=== PATIENT | male | born 1945 | race Caucasian/White ===

== ENCOUNTER → 2016-11-28 | Outpatient (CLI) | payer OTHER, MEDICARE ==
[~2016-11-28] MED LIST: ETD400T; HYDR-3820 PO; PANT40TA PO
--- OUTSIDE RECORDS SUMMARY | 2016-11-28 14:57 | XMS REPORT | Continuity of Care Document ---
Author Author [facility] Organization [facility] Address Unknown Phone Unavailable Allergies Active Description Code Type Severity Reaction Onset Reported/Identified Relationship to Patient Clinical Status Yes hydrogen peroxide [id number] Drug Allergy Unknown N/A 04/07/2009 Medications Problems Date Dx Coded Attending Type Code Diagnosis Diagnosed By 05/19/2013 COLETTE MCCURDY MD Ot 562.10 DIVERTICULOSIS COLON (W/O MENT OF HEMORR 05/19/2013 COLETTE MCCURDY MD Ot V12.72 PERSONAL HISTORY OF COLONIC POLYPS 05/19/2013 COLETTE MCCURDY MD Ot V76.51 SCREEN MAL NEOP-COLON 10/19/2014 JAMIE ALBARADO MD R Ot 786.50 03/18/2015 JAMIE ALBARADO MD Ot 786.50 03/22/2016 Ot 473.9 CHRONIC SINUSITIS NOS 03/22/2016 Ot 562.10 DIVERTICULOSIS COLON (W/O MENT OF HEMORR 03/22/2016 Ot 574.20 CHOLELITHIASIS NOS 03/22/2016 Ot 789.09 ABDOMINAL PAIN, OTHER SPECIFIED SITE 03/22/2016 JAMIE ALBARADO MD Ot 574.20 CHOLELITHIASIS NOS 03/22/2016 JAMIE ALBARADO MD Ot 600.00 HYPERTROPHY (BENIGN) OF PROSTATE W/O URI 03/22/2016 JAMIE ALBARADO MD Ot 719.45 JOINT PAIN-PELVIS 03/22/2016 COLETTE MCCURDY MD Ot V72.84 EXAM PRE-OPERATIVE NOS 03/22/2016 JAMIE ALBARADO MD Ot 786.50 CHEST PAIN NOS 03/26/2016 JAMIE ALBARADO MD Ot H92.01 OTALGIA, RIGHT EAR 03/26/2016 JAMIE ALBARADO MD Ot R91.1 SOLITARY PULMONARY NODULE 03/26/2016 JAMIE ALBARADO MD Ot Z85.89 PERSONAL HISTORY OF MALIGNANT NEOPLASM O 06/11/2016 Ot 473.9 CHRONIC SINUSITIS NOS 06/11/2016 Ot 562.10 DIVERTICULOSIS COLON (W/O MENT OF HEMORR 06/11/2016 Ot 574.20 CHOLELITHIASIS NOS 06/11/2016 Ot 789.09 ABDOMINAL PAIN, OTHER SPECIFIED SITE 06/11/2016 JAMIE ALBARADO MD R Ot 574.20 CHOLELITHIASIS NOS 06/11/2016 JAMIE ALBARADO MD R Ot 600.00 HYPERTROPHY (BENIGN) OF PROSTATE W/O URI 06/11/2016 JAMIE ALBARADO MD R Ot 719.45 JOINT PAIN-PELVIS 06/11/2016 KAZ KIMBALL, COLETTE Ot V72.84 EXAM PRE-OPERATIVE NOS 06/11/2016 JAMIE ALBARADO MD R Ot 786.50 CHEST PAIN NOS 06/11/2016 JAMIE ALBARADO MD R Ot H92.01 OTALGIA, RIGHT EAR 06/11/2016 JAMIE ALBARADO MD R Ot R91.1 SOLITARY PULMONARY NODULE 06/11/2016 JAMIE ALBARADO MD R Ot Z85.89 PERSONAL HISTORY OF MALIGNANT NEOPLASM O 06/20/2016 JAMIE ALBARADO MD R Ot H92.01 OTALGIA, RIGHT EAR 06/20/2016 JAMIE ALBARADO MD R Ot R91.1 SOLITARY PULMONARY NODULE 06/20/2016 JAMIE ALBARADO MD R Ot Z85.89 PERSONAL HISTORY OF MALIGNANT NEOPLASM O 06/20/2016 Ot 473.9 CHRONIC SINUSITIS NOS 06/20/2016 Ot 562.10 DIVERTICULOSIS COLON (W/O MENT OF HEMORR 06/20/2016 Ot 574.20 CHOLELITHIASIS NOS 06/20/2016 Ot 789.09 ABDOMINAL PAIN, OTHER SPECIFIED SITE 06/20/2016 JAMIE ALBARADO MD R Ot 574.20 CHOLELITHIASIS NOS 06/20/2016 JAMIE ALBARADO MD R Ot 600.00 HYPERTROPHY (BENIGN) OF PROSTATE W/O URI 06/20/2016 JAMIE ALBARADO MD R Ot 719.45 JOINT PAIN-PELVIS 06/20/2016 KAZ KIMBALL, COLETTE Ot V72.84 EXAM PRE-OPERATIVE NOS 06/20/2016 JAMIE ALBARADO MD R Ot 786.50 CHEST PAIN NOS 06/20/2016 SEGJAMIE WILLSON MD Ot H92.01 OTALGIA, RIGHT EAR 06/20/2016 JAMIE ALBARADO MD R Ot R91.1 SOLITARY PULMONARY NODULE 06/20/2016 JAMIE ALBARADO MD R Ot Z85.89 PERSONAL HISTORY OF MALIGNANT NEOPLASM O 06/25/2016 Ot 473.9 CHRONIC SINUSITIS NOS 06/25/2016 Ot 562.10 DIVERTICULOSIS COLON (W/O MENT OF HEMORR 06/25/2016 Ot 574.20 CHOLELITHIASIS NOS 06/25/2016 Ot 789.09 ABDOMINAL PAIN, OTHER SPECIFIED SITE 06/25/2016 JAMIE ALBARADO MD Ot 574.20 CHOLELITHIASIS NOS 06/25/2016 JAMIE ALBARADO MD Ot 600.00 HYPERTROPHY (BENIGN) OF PROSTATE W/O URI 06/25/2016 JAMIE ALBARADO MD Ot 719.45 JOINT PAIN-PELVIS 06/25/2016 COLETTE MCCURDY MD Ot V72.84 EXAM PRE-OPERATIVE NOS 06/25/2016 JAMIE ALBARADO MD Ot 786.50 CHEST PAIN NOS 06/25/2016 JAMIE ALBARADO MD Ot H92.01 OTALGIA, RIGHT EAR 06/25/2016 JAMIE ALBARADO MD Ot R91.1 SOLITARY PULMONARY NODULE 06/25/2016 JAMIE ALBARADO MD Ot Z85.89 PERSONAL HISTORY OF MALIGNANT NEOPLASM O Procedures Results Encounters ACCT No. Visit Date/Time Discharge Status Pt. Type Provider Facility Loc./Unit Complaint [id number] 10/10/2014 10:06:00 2013 23:59:59 CLS Outpatient JAMIE ALBARADO MD [facility] RAD L LAT-ANT CP, [id number] 05/19/2013 08:13:00 2012 11:20:00 DIS Outpatient COLETTE MCCURDY MD [facility] ABDOMINAL PAIN/HISTORY OF POLYPS [id number] 05/12/2013 08:14:00 2012 23:59:59 CLS Outpatient COLETTE MCCURDY MD [facility] PREOP ABDOMINAL PAIN/HISTORY OF POLYPS [id number] 03/25/2013 08:31:00 2012 23:59:59 CLS Outpatient JAMIE ALBARADO MD [facility] RAD ABD PAIN, PAIN IN LEFT HIP [id number] 03/22/2016 13:44:00 ACT Outpatient JAMIE ALBARADO MD [facility] RAD RT EAR PRESSURE/PAIN [id number] 05/11/2012 13:42:00 Document Registration [id number] 05/17/2011 09:43:00 Document Registration
--- NOTE | 2016-11-28 15:30 | Diagnostic Imaging Report ---
EXAMINATION: Right lower extremity duplex venous ultrasound. TECHNIQUE: DVT protocol. Multiple sonographic images with color Doppler and waveform interrogation were performed of the right lower extremity veins with compression and augmentation maneuvers. INDICATION: Right leg pain. FINDINGS: The right lower extremity veins from the groin to below the knee veins were examined with normal color-flow, compressibility and normal waveform demonstrated. The great saphenous vein is patent. IMPRESSION: No evidence of DVT in the right lower extremity. Dictated by: Dictated on workstation # [id number]
== END ==
LOC: RAD 14:53
DX: M79.651 Pain in right thigh (principal)

== ENCOUNTER 2016-11-30 00:12 | Emergency (ER) | payer OTHER, MEDICARE ==
[~2016-11-30] VITALS: Ht 172.7 cm; Wt 81.6 kg
[~2016-11-30 00:12] MED LIST changes: -HYDR-3820 PO
--- NOTE | 2016-11-30 00:40 | ED Lower Extremity ---
General Chief Complaint: -Male Stated Complaint: RT LEG PAIN Nursing Triage Note: REPORTS DEVELOPED SEVERE RIGHT GROIN AREA PAIN FRIDAY NIGHT. HAD AN ULTRASOUND DONE ON FRIDAY WHICH WAS NEGATIVE FOR BLOOD CLOT, DONE THRU WORK MD GIVING ORDER. Nursing Sepsis Screen: No Definite Risk Source: patient Exam Limitations: no limitations History of Present Illness Time seen by provider: 00:40 Initial Comments As above. See below for further hx. Onset: this afternoon, other (Awoke him just p/ midnight AM. Negative venous doppler of his RLE . Pain continues and just can't take it any longer. Never had anything like this before. Does have some radiation down leg to below knee and now some radiation up into his low back.) Severity: severe (07/29) Pain/Injury Location: right thigh Method of Injury: unknown Modifying Factors: Improves With Other (nothing really makes it better or worse.) Allergies and Home Medications Allergies Coded Allergies: Hydrogen Peroxide (Verified Allergy, Unknown, 04/07/09) Home Medications Hydrocodone/Acetaminophen 1 Each Tablet #24 1 EACH PO Q6H Prescribed by: KING CROFT on 11/30/16 0337 Pantoprazole Sodium 40 Mg Tablet.dr 40 MG PO DAILY (Reported) Constitutional: see HPI Musculoskeletal: see HPI (right upper anterior-medial thigh pain) All Other Systems Reviewed Negative Unless Noted: Yes (Negative excepted noted.) Past Jgkwsht-Kvdsmh-Yqphdi Hx Patient Social History Alcohol Use: Denies Use Recreational Drug Use: No Smoking Status: Former Smoker Type Used: Cigarettes 2nd Hand Smoke Exposure: No Recent Foreign Travel: No Contact w/Someone Who Travel: No Recent Infectious Disease Expo: No Recent Hopitalizations: No Immunizations Up To Date Date of Pneumonia Vaccine: Aug 20, 2016 Seasonal Allergies Seasonal Allergies: No Surgeries HX Surgeries: Yes (iNGUINAL HERNIA) Surgeries: Appendectomy Respiratory Hx Respiratory Disorders: No Cardiovascular Hx Cardiac Disorders: Yes (MITRAL VALVE PROLAPSE) Neurological Hx Neurological Disorders: No Reproductive System Hx Reproductive Disorders: No Genitourinary Hx Genitourinary Disorders: Yes Genitourinary Disorders: Kidney Stones Gastrointestinal Hx Gastrointestinal Disorders: Yes (Manohar FREDERICK 2006) Musculoskeletal Hx Musculoskeletal Disorders: Yes Musculoskeletal Disorders: Arthritis Endocrine Hx Endocrine Disorders: No HEENT HX ENT Disorders: No Cancer Hx Cancer: No Psychosocial Hx Psychiatric Problems: No Integumentary HX Skin/Integumentary Disorder: No Blood Transfusions Hx Blood Disorders: No Physical Exam Vital Signs Vital Sign - Last 12Hours 11/30/16 00:18 Temp 98.2 Pulse 75 Resp 20 B/P 183/93 Pulse Ox 95 O2 Delivery Room Air Capillary Refill : Less Than 3 Seconds General Appearance: WD/WN no apparent distress Cardiovascular: regular rate, rhythm Respiratory: no respiratory distress Gastrointestinal: non tender Legs: right leg pain (right upper anterior lateral thigh), right leg soft tissue tenderness (right upper anterior medial thigh) Neurologic/Psychiatric: no motor/sensory deficits alert normal mood/affect oriented x 3 Skin: warm/dry Progress/Results/Core Measures Results/Orders Lab Results Laboratory Tests Test 11/30/16 00:39 11/30/16 02:05 Range/Units Urine Bacteria NEGATIVE /HPF Urine Bilirubin NEGATIVE NEGATIVE Urine Casts NONE /LPF Urine Clarity SLIGHTLY CLOUDY Urine Color YELLOW Urine Crystals NONE /LPF Urine Culture Indicated NO Urine Glucose (UA) NEGATIVE NEGATIVE Urine Ketones NEGATIVE NEGATIVE Urine Leukocyte Esterase NEGATIVE NEGATIVE Urine Mucus LARGE H /LPF Urine Nitrite NEGATIVE NEGATIVE Urine Protein 1+ H NEGATIVE Urine RBC RARE /HPF Urine RBC (Auto) 1+ H NEGATIVE Urine Specific [place] 1.025 H 1.016-1.022 Urine Squamous Epithelial Cells 0-2 /HPF Urine Urobilinogen NORMAL NORMAL MG/DL Urine WBC RARE /HPF Urine pH 5 5-9 Alanine Aminotransferase (ALT/SGPT) 17 0-55 U/L Albumin 4.2 3.2-4.5 G/DL Alkaline Phosphatase 75 40-136 U/L Anion Gap 11 5-14 MMOL/L Aspartate Amino Transf (AST/SGOT) 19 5-34 U/L BUN/Creatinine Ratio 27 Basophils # (Auto) 0.0 0.0-0.1 10^3/uL Basophils (%) (Auto) 1 0-10 % Blood Urea Nitrogen 28 H 7-18 MG/DL C-Reactive Protein High Sensitivity 0.07 0.00-0.50 MG/DL Calcium Level 9.0 8.5-10.1 MG/DL Carbon Dioxide Level 22 21-32 MMOL/L Chloride Level 107 98-107 MMOL/L Creatinine 1.04 0.60-1.30 MG/DL D-Dimer < 0.27 0.00-0.49 UG/ML Eosinophils # (Auto) 0.3 0.0-0.3 10^3/uL Eosinophils (%) (Auto) 5 0-10 % Erythrocyte Sedimentation Rate 6 0-30 MM/HR Estimat Glomerular Filtration Rate > 60 Glucose Level 102 70-105 MG/DL Hematocrit 39 L 40-54 % Hemoglobin 12.8 L 13.3-17.7 G/DL Lymphocytes # (Auto) 2.6 1.0-4.0 X 10^3 Lymphocytes (%) (Auto) 41 12-44 % Mean Corpuscular Hemoglobin 27 25-34 PG Mean Corpuscular Hemoglobin Concent 33 32-36 G/DL Mean Corpuscular Volume 83 80-99 FL Mean Platelet Volume 10.0 7.4-10.4 FL Monocytes # (Auto) 0.7 0.0-1.0 X 10^3 Monocytes (%) (Auto) 10 0-12 % Neutrophils # (Auto) 2.8 1.8-7.8 X 10^3 Neutrophils (%) (Auto) 44 42-75 % Platelet Count 162 130-400 10^3/uL Potassium Level 4.0 3.6-5.0 MMOL/L Red Blood Count 4.70 4.35-5.85 10^6/uL Red Cell Distribution Width 15.3 H 10.0-14.5 % Sodium Level 140 135-145 MMOL/L Total Bilirubin 0.4 0.1-1.0 MG/DL Total Protein 6.7 6.4-8.2 G/DL White Blood Count 6.4 4.3-11.0 10^3/uL My Orders Orders-KING CROFT DO Ua Culture If Indicated (11/30/16 00:39) Oxycodone Immediate Rel Tablet (Oxyir Ta (11/30/16 00:45) Ct Extremity Lower Right Wo (11/30/16 01:03) Saline Lock/Iv-Start (11/30/16 02:03) Cbc With Automated Diff (11/30/16 02:03) Comprehensive Metabolic Panel (11/30/16 02:03) Hs C Reactive Protein (11/30/16 02:03) Fibrin Degradation Products (11/30/16 02:03) Erythrocyte Sedimentation Rate (11/30/16 02:03) Dexamethasone Pf Injection (Decadron Pf (11/30/16 03:45) Hydromorphone Injection (Dilaudid Inject (11/30/16 03:45) Medications Given in ED Vital Signs/I&O Vital Sign - Last 12Hours 11/30/16 11/30/16 11/30/16 11/30/16 00:18 03:42 03:43 03:55 Temp 98.2 98.2 98.2 98.2 Pulse 75 63 Resp 20 20 B/P 183/93 Pulse Ox 95 96 O2 Delivery Room Air Blood Pressure Mean: 123 Diagnostic Imaging Diagonstic Imaging: CT Plain Films/CT/US/NM/MRI: femur Reviewed: Reviewed [place] Hawk Study (nothing acute. ) Departure Impression Impression: Primary Impression: Acute pain of left thigh Disposition: HOME, SELF-CARE Condition: Stable Departure-Patient Inst. Decision time for Depature: 03:35 Referrals: JAMIE ALBARADO MD (PCP/Family) Primary Care Physician Patient Instructions: Acute Pain, Adult (DC) Add. Discharge Instructions: All discharge instructions reviewed with patient and/or family. Voiced understanding. FOLLOW UP WITH DR. ALBARADO IF NOT DOING BETTER BY FRIDAY, 12/02. MAY NEED A MRI OF YOUR THIGH. Scripts Hydrocodone/Acetaminophen (Hydrocodon-Acetaminophn 10-325)1 Each Tablet1 Each PO Q6H Pain #24 TAB Ref 0 Prov:KING CROFT DO 11/30/16 KING CROFT DO Nov 30, 2016 00:40 Prov:KING CROFT DO 11/30/16 KING CROFT DO Nov 30, 2016 00:40
[2016-11-30 00:58] LABS: BILIRUBIN,URINE NEGATIVE (NEGATIVE); KETONES,URINE NEGATIVE (NEGATIVE); LEUKOCYTE ESTERASE ,URINE NEGATIVE (NEGATIVE); NITRITE,URINE NEGATIVE (NEGATIVE); PH,URINE 5 (5-9); PROTEIN,URINE 1+ (NEGATIVE); UROBILINOGEN,URINE NORMAL (NORMAL)
[2016-11-30 01:08] LABS: SQUAMOUS EPITHELIAL CELL,UR 0-2 /HPF; WBC,URINE RARE /HPF
[2016-11-30 02:18] LABS: BASOPHILS % (AUTO) 1 % (0-10); EOSINOPHILS # (AUTO) 0.3 10^3/uL (0.0-0.3); EOSINOPHILS % (AUTO) 5 % (0-10); LYMPHOCYTES # (AUTO) 2.6 X 10^3 (1.0-4.0); LYMPHOCYTES % (AUTO) 41 % (12-44); MEAN CORPUSCULAR HEMOGLOBIN 27 PG (25-34); MEAN CORPUSCULAR HGB CONC 33 G/DL (32-36); MEAN CORPUSCULAR VOLUME 83 FL (80-99); MONOCYTES # (AUTO) 0.7 X 10^3 (0.0-1.0); MONOCYTES % (AUTO) 10 % (0-12); NEUTROPHILS # (AUTO) 2.8 X 10^3 (1.8-7.8); NEUTROPHILS % (AUTO) 44 % (42-75); PLATELET COUNT 162 10^3/uL (130-400); RED CELL DISTRIBUTION WIDTH 15.3 % (10.0-14.5); WHITE BLOOD COUNT 6.4 10^3/uL (4.3-11.0)
[2016-11-30 02:41] LABS: ALANINE AMINOTRANSFERASE 17 U/L (0-55); ALBUMIN 4.2 G/DL (3.2-4.5); ANION GAP 11 MMOL/L (5-14); ASPARTATE AMINO TRANSFERASE 19 U/L (5-34); BILIRUBIN,TOTAL 0.4 MG/DL (0.1-1.0); BLOOD UREA NITROGEN 28 MG/DL (7-18); BUN/CREATININE RATIO 27; CARBON DIOXIDE 22 MMOL/L (21-32); CHLORIDE 107 MMOL/L (98-107); CREATININE SERUM 1.04 MG/DL (0.60-1.30); GFR ESTIMATED > 60; GLUCOSE 102 MG/DL (70-105); SODIUM 140 MMOL/L (135-145); TOTAL PROTEIN 6.7 G/DL (6.4-8.2); hs C REACTIVE PROTEIN 0.07 MG/DL (0.00-0.50)
[2016-11-30 03:22] LABS: ERYTHROCYTE SEDIMENTATION RATE 6 MM/HR (0-30)
[2016-11-30] MEDS ORDERED: HYDR-3820 PO (03:37)
[2016-11-30] MEDS ORDERED: DEXAMETHASONE PF 10 MG/ML (DECADRON) VIAL IM ONE (03:45)
[2016-11-30] MEDS ORDERED: HYDROmorphone (DILAUDID) 2 MG/ML VIAL IM ONE (03:45)
[2016-11-30 03:55] VITALS: BP 164/77
--- NOTE | 2016-11-30 07:21 | Diagnostic Imaging Report ---
PROCEDURE: CT right lower extremity without contrast. TECHNIQUE: Axially acquired CT was obtained through the right lower extremity without intravenous contrast. Coronal and sagittal reformations were also performed. INDICATION: Right groin pain EXAMINATION: CT of the right lower extremity dated 11/30/19 FINDINGS: The visualized intrapelvic structures demonstrate prominence and heterogeneity as well as calcifications throughout the prostate and clinical correlation recommended. The osseous structures are intact. No acute fractures appreciated. Lucencies noted within the right anterior acetabulum superiorly consistent with subchondral cysts associated with degenerative disease. More inferiorly within the acetabulum a peripherally sclerotic centrally lucent lesion is noted nonspecific but benign in appearance. There is no dislocation. Spurring at the femoral head is noted. Visualized proximal femur is intact. Soft tissues appear unremarkable. There is a vague lucency within the right femoral neck on the coronal imaging which is felt to represent a nutrient foramen. No adjacent soft tissue abnormality is appreciated. IMPRESSION: 1. Incidental findings as discussed above with no acute osseous abnormality. However, if the patient has continued pain or cannot bear weight MRI recommended versus bone scan to evaluate for edema or uptake at a nondisplaced occult fracture. Findings agree with the preliminary report. Dictated by: Dictated on workstation # [id number]
== END 2016-11-30 03:55 | disposition home or self-care (01) ==
LOC: EDUNIT# 00:12 → ER 00:15
DX: M79.651 Pain in right thigh (principal)
CPT/HCPCS: 36415; 73700; 80053; 81000; 85025; 85379; 85652; 86141; 96372

== ENCOUNTER → 2016-12-02 | Outpatient (CLI) | payer OTHER, MEDICARE ==
[~2016-12-02] MED LIST changes: +GADOBUTROL 10 MMOL/10 ML (GADAVIST) VIAL IV ONE; +HYDR-3820 PO
[2016-12-02 16:02] LABS: BLOOD UREA NITROGEN 28 MG/DL (7-18); BUN/CREATININE RATIO 26; CREATININE SERUM 1.09 MG/DL (0.60-1.30); GFR ESTIMATED > 60
--- NOTE | 2016-12-02 17:19 | Diagnostic Imaging Report ---
PROCEDURE: MRI pelvis with and without contrast. TECHNIQUE: A multiplanar/multisequence MRI of the pelvis was performed with and without contrast. INDICATION: Severe right groin pain. CONTRAST: 80 mL of Gadovist was administered intravenously. FINDINGS: In the anterior inferior aspect of the acetabulum on the right side, there is a T2 bright lobulated lesion measuring 1.8 x 1.7 x 1.3 cm. The lesion is slightly hyperintense on the T1 fat-sat sequence prior to contrast administration and demonstrates questionable mild contrast enhancement. A similar signal intensity lesion measuring 1 cm is seen in the anterior inferior aspect of the left acetabulum. These lesions have sharply marginated borders with no surrounding edema and with no MRI evidence of an associated fracture. There is another lesion with T2 bright signal in the left transverse process of the L5 level measuring 1.4 cm in size. This lesion demonstrates enhancement on the post contrast exam. This lesion appears to have less defined margins when compared to the previously described abnormalities in the anterior inferior acetabulum on both sides. The three lesions in the acetabulum and left L5 transverse process demonstrate no soft tissue mass component. There is no sacral insufficiency fracture. No femoral neck insufficiency or stress fracture is seen. There is no avascular necrosis. There is a minimal symmetric amount of fluid in the hip joints which could be physiologic. There is no distention of the greater trochanteric or iliopsoas bursa seen. The common origin of the hamstring tendons appears normal. The muscles around the hip joints and pelvis appear unremarkable. The soft tissue structures within the true pelvis demonstrate a slightly enlarged prostate gland measuring 5 cm in transverse dimension with a minimal amount of free peritoneal fluid of uncertain significance. IMPRESSION: Focal bone lesions, relatively small in size, are seen in the anterior inferior acetabulum bilaterally and in the left transverse process of L5. The acetabular lesions are well circumscribed and demonstrate minimal post contrast enhancement. Based on their subchondral location, these could be degenerative subchondral cysts with slightly reactive enhancement. The lesion in the left L5 transverse process demonstrates moderate enhancement and is not well circumscribed. The etiology is uncertain. Neoplasm such as plasmacytoma or metastasis is not excluded. Further evaluation with a bone scan is recommended. Report faxed to Dr. William at [phone] at 5:20 p.m. 12/02/2016/lucio Dictated by: Dictated on workstation # [id number]
== END ==
LOC: RAD 15:10
PROVIDERS: ATTEND Family Medicine
DX: R10.31 Right lower quadrant pain (principal); M89.9 Disorder of bone, unspecified
CPT/HCPCS: 36415; 72197; 82565; 84520

== ENCOUNTER → 2016-12-04 | Outpatient (CLI) | payer OTHER, MEDICARE ==
[~2016-12-04] MED LIST changes: -GADOBUTROL 10 MMOL/10 ML (GADAVIST) VIAL IV ONE
[2016-12-04 12:25] LABS: MEAN PLATELET VOLUME 10.3 FL (7.4-10.4); RED BLOOD COUNT 4.77 10^6/uL (4.35-5.85); RED CELL DISTRIBUTION WIDTH 15.3 % (10.0-14.5); WHITE BLOOD COUNT 10.2 10^3/uL (4.3-11.0)
[2016-12-04 12:45] LABS: ALANINE AMINOTRANSFERASE 15 U/L (0-55); ALBUMIN 4.4 G/DL (3.2-4.5); ANION GAP 9 MMOL/L (5-14); ASPARTATE AMINO TRANSFERASE 13 U/L (5-34); BILIRUBIN,TOTAL 0.5 MG/DL (0.1-1.0); BLOOD UREA NITROGEN 28 MG/DL (7-18); BUN/CREATININE RATIO 28; CALCIUM 9.5 MG/DL (8.5-10.1); CARBON DIOXIDE 23 MMOL/L (21-32); CHLORIDE 103 MMOL/L (98-107); GFR ESTIMATED > 60; GLUCOSE 154 MG/DL (70-105); POTASSIUM 4.6 MMOL/L (3.6-5.0); SODIUM 135 MMOL/L (135-145); TOTAL PROTEIN 7.1 G/DL (6.4-8.2)
== END ==
LOC: LAB 11:56
PROVIDERS: ATTEND Family Medicine
DX: M89.8X9 Other specified disorders of bone, unspecified site (principal)
CPT/HCPCS: 36415; 80053; 85027

== ENCOUNTER → 2016-12-06 | Outpatient (CLI) | payer OTHER, MEDICARE ==
--- OUTSIDE RECORDS SUMMARY | 2016-12-06 11:35 | XMS REPORT | Continuity of Care Document ---
Author Author [facility] Organization [facility] Address Unknown Phone Unavailable Allergies Active Description Code Type Severity Reaction Onset Reported/Identified Relationship to Patient Clinical Status Yes hydrogen peroxide [id number] Drug Allergy Unknown N/A 04/07/2009 Medications Problems [...] HYPERTROPHY (BENIGN) OF PROSTATE W/O URI 06/20/2016 JAMEI ALBARADO MD R Ot 719.45 JOINT PAIN-PELVIS 06/20/2016 KAZ KIMBALL, COLETTE Ot V72.84 EXAM PRE-OPERATIVE NOS 06/20/2016 JAMIE ALBARADO MD R Ot 786.50 CHEST PAIN NOS 06/20/2016 SEGJAMIE WILLSON MD R Ot H92.01 OTALGIA, RIGHT EAR 06/20/2016 JAMIE ALBARADO MD R Ot R91.1 SOLITARY PULMONARY NODULE 06/20/2016 JAMIE ALBARADO MD R Ot Z85.89 PERSONAL HISTORY OF MALIGNANT NEOPLASM O 06/25/2016 Ot 473.9 CHRONIC SINUSITIS NOS 06/25/2016 Ot 562.10 DIVERTICULOSIS COLON (W/O MENT OF HEMORR 06/25/2016 Ot 574.20 CHOLELITHIASIS NOS 06/25/2016 Ot 789.09 ABDOMINAL PAIN, OTHER SPECIFIED SITE 06/25/2016 JAMIE ALBARADO MD R Ot 574.20 CHOLELITHIASIS NOS 06/25/2016 JAMIE ALBARADO MD R Ot 600.00 HYPERTROPHY (BENIGN) OF PROSTATE W/O URI 06/25/2016 JAMIE ALBARADO MD R Ot 719.45 JOINT PAIN-PELVIS 06/25/2016 KAZ KIMBALL, COLETTE Ot V72.84 EXAM PRE-OPERATIVE NOS 06/25/2016 JAMIE ALBARADO MD R Ot 786.50 CHEST PAIN NOS 06/25/2016 JAMIE ALBARADO MD R Ot H92.01 OTALGIA, RIGHT EAR 06/25/2016 JAMIE ALBARADO MD R Ot R91.1 SOLITARY PULMONARY NODULE 06/25/2016 JAMIE ALBARADO MD R Ot Z85.89 PERSONAL HISTORY OF MALIGNANT NEOPLASM O 11/30/2016 Ot 562.10 DIVERTICULOSIS COLON (W/O MENT OF HEMORR 11/30/2016 Ot 574.20 CHOLELITHIASIS NOS 11/30/2016 Ot 789.09 ABDOMINAL PAIN, OTHER SPECIFIED SITE 11/30/2016 JAMIE ALBARADO MD R Ot 574.20 CHOLELITHIASIS NOS 11/30/2016 JAMIE ALBARADO MD R Ot 600.00 HYPERTROPHY (BENIGN) OF PROSTATE W/O URI 11/30/2016 JAMIE ALBARADO MD R Ot 719.45 JOINT PAIN-PELVIS 11/30/2016 COLETTE MCCURDY MD Ot V72.84 EXAM PRE-OPERATIVE NOS 11/30/2016 JAMIE ALBARADO MD R Ot 786.50 CHEST PAIN NOS 11/30/2016 JAMIE ALBARADO MD R Ot H92.01 OTALGIA, RIGHT EAR 11/30/2016 JAMIE ALBARADO MD Ot R91.1 SOLITARY PULMONARY NODULE 11/30/2016 JAMIE ALBARADO MD Ot Z85.89 PERSONAL HISTORY OF MALIGNANT NEOPLASM O 11/30/2016 Ot M79.651 PAIN IN RIGHT THIGH 11/30/2016 Ot 562.10 DIVERTICULOSIS COLON (W/O MENT OF HEMORR 11/30/2016 Ot 574.20 CHOLELITHIASIS NOS 11/30/2016 Ot 789.09 ABDOMINAL PAIN, OTHER SPECIFIED SITE 11/30/2016 JAMIE ALBARADO MD Ot 574.20 CHOLELITHIASIS NOS 11/30/2016 JAMIE ALBARADO MD Ot 600.00 HYPERTROPHY (BENIGN) OF PROSTATE W/O URI 11/30/2016 JAMIE ALBARADO MD Ot 719.45 JOINT PAIN-PELVIS 11/30/2016 KAZ KIMBALL, COLETTE Ot V72.84 EXAM PRE-OPERATIVE NOS 11/30/2016 JAMIE ALBARADO MD Ot 786.50 CHEST PAIN NOS 11/30/2016 JAMIE ALBARADO MD Ot H92.01 OTALGIA, RIGHT EAR 11/30/2016 JAMIE ALBARADO MD Ot R91.1 SOLITARY PULMONARY NODULE 11/30/2016 JAMIE ALBARADO MD Ot Z85.89 PERSONAL HISTORY OF MALIGNANT NEOPLASM O 11/30/2016 Ot M79.651 PAIN IN RIGHT THIGH 11/30/2016 KING CROFT DO Ot M79.651 PAIN IN RIGHT THIGH 12/03/2016 KING CROFT DO Ot M79.651 PAIN IN RIGHT THIGH 12/04/2016 JAMIE ALBARADO MD Ot M89.9 DISORDER OF BONE, UNSPECIFIED 12/04/2016 JAMIE ALBARADO MD Ot R10.31 RIGHT LOWER QUADRANT PAIN Procedures Results Test Result Range Complete urinalysis with reflex to culture - 11/30/16 00:39 Urine color determination YELLOW NRG Urine clarity determination SLIGHTLY CLOUDY NRG Urine pH measurement by test strip 5 5- 9 Specific gravity of urine by test strip 1.025 1.016-1.022 Urine protein assay by test strip, semi-quantitative 1+ NEGATIVE Urine glucose detection by automated test strip NEGATIVE NEGATIVE Erythrocytes detection in urine sediment by light microscopy 1+ NEGATIVE Urine ketones detection by automated test strip NEGATIVE NEGATIVE Urine nitrite detection by test strip NEGATIVE NEGATIVE Urine total bilirubin detection by test strip NEGATIVE NEGATIVE Urine urobilinogen measurement by automated test strip (mass/volume) NORMAL NORMAL Urine leukocyte esterase detection by dipstick NEGATIVE NEGATIVE Automated urine sediment erythrocyte count by microscopy (number/high power field) RARE NRG Automated urine sediment leukocyte count by microscopy (number/high power field ) RARE NRG Bacteria detection in urine sediment by light microscopy NEGATIVE NRG Squamous epithelial cells detection in urine sediment by light microscopy 0-2 NRG Crystals detection in urine sediment by light microscopy NONE NRG Casts detection in urine sediment by light microscopy NONE NRG Mucus detection in urine sediment by light microscopy LARGE NRG Complete urinalysis with reflex to culture NO NRG Complete blood count (CBC) with automated white blood cell (WBC) differential - 11/30/16 02:05 Blood leukocytes automated count (number/volume) 6.4 10*3/ uL 4.3-11.0 Blood erythrocytes automated count (number/volume) 4.70 10*6 /uL 4.35-5.85 Venous blood hemoglobin measurement (mass/volume) 12.8 g/dL 13.3-17.7 Blood hematocrit (volume fraction) 39 % 40-54 Automated erythrocyte mean corpuscular volume 83 [foz_us] 80-99 Automated erythrocyte mean corpuscular hemoglobin (mass per erythrocyte) 27 pg 25-34 Automated erythrocyte mean corpuscular hemoglobin concentration measurement ( mass/volume) 33 g/dL 32-36 Automated erythrocyte distribution width ratio 15.3 % 10.0-14.5 Automated blood platelet count (count/volume) 162 10*3/uL 130-400 Automated blood platelet mean volume measurement 10.0 [foz_ us] 7.4-10.4 Automated blood neutrophils/100 leukocytes 44 % 42-75 Automated blood lymphocytes/100 leukocytes 41 % 12-44 Blood monocytes/100 leukocytes 10 % 0-12 Automated blood eosinophils/100 leukocytes 5 % 0-10 Automated blood basophils/100 leukocytes 1 % 0-10 Blood neutrophils automated count (number/volume) 2.8 10*3 1.8-7.8 Blood lymphocytes automated count (number/volume) 2.6 10*3 1.0-4.0 Blood monocytes automated count (number/volume) 0.7 10*3 0.0-1.0 Automated eosinophil count 0.3 10*3/uL 0.0-0.3 Automated blood basophil count (count/volume) 0.0 10*3/uL 0.0-0.1 Comprehensive metabolic panel - 11/30/16 02:05 Serum or plasma sodium measurement (moles/volume) 140 mmol/ L 135-145 Serum or plasma potassium measurement (moles/volume) 4.0 mmol/L 3.6-5.0 Serum or plasma chloride measurement (moles/volume) 107 mmol /L 98-107 Carbon dioxide 22 mmol/L 21-32 Serum or plasma anion gap determination (moles/volume) 11 mmol/L 5-14 Serum or plasma urea nitrogen measurement (mass/volume) 28 mg/dL 7-18 Serum or plasma creatinine measurement (mass/volume) 1.04 mg /dL 0.60-1.30 Serum or plasma urea nitrogen/creatinine mass ratio 27 NRG Serum or plasma creatinine measurement with calculation of estimated glomerular filtration rate > NRG Serum or plasma glucose measurement (mass/volume) 102 mg/dL 70-105 Serum or plasma calcium measurement (mass/volume) 9.0 mg/dL 8.5-10.1 Serum or plasma total bilirubin measurement (mass/volume) 0.4 mg/dL 0.1-1.0 Serum or plasma alkaline phosphatase measurement (enzymatic activity/volume) 75 U/L 40-136 Serum or plasma aspartate aminotransferase measurement (enzymatic activity/ volume) 19 U/L 5-34 Serum or plasma alanine aminotransferase measurement (enzymatic activity/volume ) 17 U/L 0-55 Serum or plasma protein measurement (mass/volume) 6.7 g/dL 6.4-8.2 Serum or plasma albumin measurement (mass/volume) 4.2 g/dL 3.2-4.5 Serum or plasma C reactive protein measurement (mass/volume) - 11/30/16 02:05 Serum or plasma C reactive protein measurement (mass/volume) 0.07 mg/dL 0.00-0.50 Fibrin D-dimer FEU measurement in platelet poor plasma (mass/volume) - 02:05 Fibrin D-dimer FEU measurement in platelet poor plasma (mass/volume) < ug/mL 0.00-0.49 Erythrocyte sedimentation rate by westergren method - 11/30/16 02:05 Erythrocyte sedimentation rate by westergren method 6 mm 0-30 [id number] - 12/02/16 15:27 Serum or plasma urea nitrogen measurement (mass/volume) 28 mg/dL 7-18 Serum or plasma creatinine measurement (mass/volume) 1.09 mg /dL 0.60-1.30 Serum or plasma urea nitrogen/creatinine mass ratio 26 NRG Serum or plasma creatinine measurement with calculation of estimated glomerular filtration rate > NRG Automated blood complete blood count (hemogram) panel - 12/04/16 12:21 Blood leukocytes automated count (number/volume) 10.2 10*3/ uL 4.3-11.0 Blood erythrocytes automated count (number/volume) 4.77 10*6 /uL 4.35-5.85 Venous blood hemoglobin measurement (mass/volume) 13.2 g/dL 13.3-17.7 Blood hematocrit (volume fraction) 40 % 40-54 Automated erythrocyte mean corpuscular volume 83 [foz_us] 80-99 Automated erythrocyte mean corpuscular hemoglobin (mass per erythrocyte) 28 pg 25-34 Automated erythrocyte mean corpuscular hemoglobin concentration measurement ( mass/volume) 33 g/dL 32-36 Automated erythrocyte distribution width ratio 15.3 % 10.0-14.5 Automated blood platelet count (count/volume) 211 10*3/uL 130-400 Automated blood platelet mean volume measurement 10.3 [foz_ us] 7.4-10.4 Comprehensive metabolic panel - 12/04/16 12:21 Serum or plasma sodium measurement (moles/volume) 135 mmol/ L 135-145 Serum or plasma potassium measurement (moles/volume) 4.6 mmol/L 3.6-5.0 Serum or plasma chloride measurement (moles/volume) 103 mmol /L 98-107 Carbon dioxide 23 mmol/L 21-32 Serum or plasma anion gap determination (moles/volume) 9 mmol/L 5-14 Serum or plasma urea nitrogen measurement (mass/volume) 28 mg/dL 7-18 Serum or plasma creatinine measurement (mass/volume) 1.00 mg /dL 0.60-1.30 Serum or plasma urea nitrogen/creatinine mass ratio 28 NRG Serum or plasma creatinine measurement with calculation of estimated glomerular filtration rate > NRG Serum or plasma glucose measurement (mass/volume) 154 mg/dL 70-105 Serum or plasma calcium measurement (mass/volume) 9.5 mg/dL 8.5-10.1 Serum or plasma total bilirubin measurement (mass/volume) 0.5 mg/dL 0.1-1.0 Serum or plasma alkaline phosphatase measurement (enzymatic activity/volume) 66 U/L 40-136 Serum or plasma aspartate aminotransferase measurement (enzymatic activity/ volume) 13 U/L 5-34 Serum or plasma alanine aminotransferase measurement (enzymatic activity/volume ) 15 U/L 0-55 Serum or plasma protein measurement (mass/volume) 7.1 g/dL 6.4-8.2 Serum or plasma albumin measurement (mass/volume) 4.4 g/dL 3.2-4.5 Encounters ACCT No. Visit Date/Time Discharge Status Pt. Type Provider Facility Loc./Unit Complaint [id number] 11/30/2016 00:15:00 2016 03:55:00 DIS Emergency KING CROFT DO [facility] ER RT LEG PAIN [id number] 10/10/2014 10:06:00 2013 23:59:59 CLS Outpatient JAMIE ALBARADO MD [facility] RAD L LAT-ANT CP, [id number] 05/19/2013 08:13:00 2012 11:20:00 DIS Outpatient [facility]/HISTORY OF POLYPS [id number] 05/12/2013 08:14:00 2012 23:59:59 CLS Outpatient COLETTE MCCURDY MD [facility] PREOP ABDOMINAL PAIN/HISTORY OF POLYPS [id number] 03/25/2013 08:31:00 2012 23:59:59 CLS Outpatient JAMIE ALBARADO MD [facility] RAD ABD PAIN, PAIN IN LEFT HIP [id number] 12/06/2016 12:00:00 PEN Preadmit JAMIE ALBARADO MD [facility] CARD RADIOLUCENT LESION OF BONE [id number] 12/04/2016 11:56:00 ACT Outpatient JAMIE ALBARADO MD [facility] LAB RADIOLUCENT LESION OF BONE [id number] 12/02/2016 15:10:00 ACT Outpatient JAMIE ALBARADO MD [facility] RAD R INGUINAL PAIN [id number] 11/29/2016 10:42:00 Document Registration [id number] 03/22/2016 13:44:00 ACT Outpatient VERENA KIMBALL, JAMIE Rosario [facility] RAD RT EAR PRESSURE/PAIN [id number] 05/11/2012 13:42:00 Document Registration [id number] 05/17/2011 09:43:00 Document Registration
--- NOTE | 2016-12-06 18:18 | Diagnostic Imaging Report ---
INDICATION: Followup of cystic lesion noted on CT scan and MRI of the pelvis. FINDINGS: Following the injection of 27 mCi tech 99M MDP IV. Delayed images show uniform uptake throughout the skeletal system. No focal areas of abnormal uptake are seen that would indicate metastatic disease or primary malignancy. In particular, no abnormal uptake noted within the pelvis along the acetabulum. No activity is seen to suggest cortical fractures. IMPRESSION: Normal whole-body bone scan with no findings to suggest malignancy. Dictated by: Dictated on workstation # [id number]
== END ==
LOC: CARD 11:31
PROVIDERS: ATTEND Family Medicine
DX: M89.8X9 Other specified disorders of bone, unspecified site (principal); R10.30 Lower abdominal pain, unspecified
CPT/HCPCS: 78306

== ENCOUNTER → 2018-07-16 | Outpatient (CLI) | payer OTHER, MEDICARE ==
--- NOTE | 2018-07-16 14:00 | Diagnostic Imaging Report ---
PROCEDURE: MRI lumbar spine. TECHNIQUE: Multiplanar, multisequence MRI of the lumbar spine was performed without contrast. INDICATION: Back pain and right knee pain. No prior examinations are available for comparison. FINDINGS: The alignment of the lumbar spine is normal. The vertebral body heights are well maintained. There is no spondylolysis or spondylolisthesis. No fractures are identified. The conus medullaris is seen at L1 and is normal in appearance. The T12-L1 disc is unremarkable. At L1-L2, there is slight loss of disc height and signal intensity as well as some mild facet disease and thickening of the ligamentum flavum. There is slight effacement of ventral thecal sac with mild bilateral neuroforaminal encroachment. At L2-L3, there is loss of disc height and signal intensity. There is facet disease and thickening of the ligamentum flavum. There is mild central spinal stenosis with encroachment upon the lateral recess bilaterally, left greater than right. There is mild to moderate bilateral neuroforaminal encroachment. At L3-L4, there is loss of disc height and signal intensity. There is broad-based annular bulging with facet disease and thickening of the ligamentum flavum. There is moderate central spinal stenosis with encroachment upon the lateral recess bilaterally. There is moderate bilateral neuroforaminal encroachment. At L4-L5, there is loss of disc height and signal intensity. There is facet disease and thickening of the ligamentum flavum. There is moderate spinal stenosis with encroachment upon the lateral recess bilaterally, right greater than left. There is moderate to severe right neuroforaminal encroachment and mild to moderate left neuroforaminal encroachment. At L5-S1, there is some minimal annular bulging with slight effacement of the ventral thecal sac. The abdominal aorta is nonaneurysmal. Kidneys are unremarkable. IMPRESSION: Diffuse lumbar spondylosis and multilevel degenerative disc disease as discussed above. Dictated by: Dictated on workstation # [id number]
== END ==
LOC: RAD 11:25
PROVIDERS: ATTEND Orthopaedic Surgery
DX: M48.061 Spinal stenosis, lumbar region without neurogenic claudication (principal); M51.17 Intervertebral disc disorders with radiculopathy, lumbosacral region; M99.73 Connective tissue and disc stenosis of intervertebral foramina of lumbar region; M51.16 Intervertebral disc disorders with radiculopathy, lumbar region; M53.86 Other specified dorsopathies, lumbar region; M47.26 Other spondylosis with radiculopathy, lumbar region
CPT/HCPCS: 72148

== ENCOUNTER → 2019-11-11 | Outpatient (CLI) | payer MEDICARE | LOC: CARD 10:34 | PROVIDERS: ATTEND Internal Medicine Cardiovascular Disease | DX: I45.10 Unspecified right bundle-branch block (principal); G47.33 Obstructive sleep apnea (adult) (pediatric); K21.9 Gastro-esophageal reflux disease without esophagitis; I08.0 Rheumatic disorders of both mitral and aortic valves | CPT/HCPCS: 93306 ==

== ENCOUNTER → 2020-03-02 | Outpatient (CLI) | payer MEDICARE, OTHER ==
[~2020-03-02] MED LIST changes: +ACHYD1T PO; +CATHETER FLUSH 10 ML SYR IV PRN; +HOLD METFORMIN - RECEIVED CONTRAST 20 ML VIAL IV SCH; -HYDR-3820 PO; +IOHEXOL 350 MG/ML 100 ML (OMNIPAQUE 350) VIAL IV ONE; +NS 100 ML (IVPB) BAG IV ONE
[2020-03-02 07:38] LABS: BUN/CREATININE RATIO 15; CARBON DIOXIDE 26 MMOL/L (21-32); CHLORIDE 105 MMOL/L (98-107); CREATININE SERUM 0.97 MG/DL (0.60-1.30); GFR ESTIMATED > 60; GLUCOSE 100 MG/DL (70-105); POTASSIUM 4.3 MMOL/L (3.6-5.0); SODIUM 141 MMOL/L (135-145)
--- NOTE | 2020-03-02 09:34 | Diagnostic Imaging Report ---
PROCEDURE: CT abdomen and pelvis with contrast. TECHNIQUE: Multiple contiguous axial images were obtained through the abdomen and pelvis after administration of intravenous contrast. Auto Exposure Controls were utilized during the CT exam to meet ALARA standards for radiation dose reduction. INDICATION: Abdominal pain. COMPARISON: 03/25/2013 FINDINGS: Included portions of the lung bases are clear. CT ABDOMEN: Benign cyst of segment 4A of the liver is identified. Gallstones are also seen. Otherwise, the liver, spleen, pancreas, adrenal glands, and kidneys have a normal CT appearance. Small bowel loops are nondistended. Normal appendix cannot be adequately identified, but there is no pericecal inflammation. Moderate air and stool is noted scattered throughout the colon. Colonic diverticula are seen. There is no CT evidence of acute diverticulitis. There is no loculated fluid collection, free fluid, nor free air. No abnormal mesenteric or retroperitoneal adenopathy is seen. Osseous structures show no acute abnormalities. CT PELVIS: Prostate is enlarged. It measures 4.3 x 5.7 cm. Urinary bladder is grossly unremarkable. There is no loculated fluid collection, free fluid, nor free air within the pelvis. No abnormal adenopathy is seen. Osseous structures show no acute abnormalities. IMPRESSION: 1. No acute abnormalities are seen within the abdomen and pelvis. 2. Cholelithiasis, but no CT evidence of acute cholecystitis. 3. Colonic diverticulosis, no CT evidence of diverticulitis. Dictated by: Dictated on workstation # [id number]
== END ==
LOC: RAD 07:03
PROVIDERS: ATTEND Family Medicine
DX: K80.20 Calculus of gallbladder without cholecystitis without obstruction (principal); K57.30 Diverticulosis of large intestine without perforation or abscess without bleeding
CPT/HCPCS: 36415; 74177; 80048

== ENCOUNTER → 2021-04-10 | Outpatient (CLI) | payer MEDICARE, OTHER ==
[~2021-04-10] MED LIST changes: -CATHETER FLUSH 10 ML SYR IV PRN; -HOLD METFORMIN - RECEIVED CONTRAST 20 ML VIAL IV SCH; -IOHEXOL 350 MG/ML 100 ML (OMNIPAQUE 350) VIAL IV ONE; -NS 100 ML (IVPB) BAG IV ONE
--- NOTE | 2021-04-10 09:01 | Diagnostic Imaging Report ---
PROCEDURE: CT Sinus w/o Contrast. TECHNIQUE: Multiple contiguous axial images were obtained through the sinuses without the use of intravenous contrast. Coronal reformations were performed. All CT scans use one or more of the following dose optimizing techniques: automated exposure control, MA and/or KvP adjustment based on a patient size and exam type, or iterative reconstruction. INDICATION: Left maxillary sinus pain. Chronic sinusitis. COMPARISON: None FINDINGS: Mild mucosal thickening is seen in the left maxillary sinus. The remainder of the paranasal sinuses are clear. No fluid levels are present. The ostiomeatal complexes are patent. The sphenoethmoid and frontoethmoid recesses are patent and unremarkable. The left frontal sinus is somewhat hypoplastic. The mastoid air cells are well pneumatized. The bony nasal septum is slightly deviated to the left. No acute facial fractures. The globes and orbits are symmetric and unremarkable. Included intracranial contents show no acute abnormalities. The included soft tissues of the head are normal in appearance. IMPRESSION: 1. Mild mucosal thickening in the antrum of the left maxillary sinus. No evidence of fluid levels. 2. Slight leftward deviation of the bony nasal septum. Dictated by: Dictated on workstation # [id number]
== END ==
LOC: RAD 08:14
PROVIDERS: ATTEND Otolaryngology Otolaryngology/Facial Plastic Surgery
DX: J32.9 Chronic sinusitis, unspecified (principal); J34.2 Deviated nasal septum
CPT/HCPCS: 70486

== ENCOUNTER → 2021-06-12 | Outpatient (CLI) | payer MEDICARE, OTHER | LOC: CARD 13:00 | PROVIDERS: ATTEND Internal Medicine Cardiovascular Disease | DX: I11.9 Hypertensive heart disease without heart failure (principal); I08.0 Rheumatic disorders of both mitral and aortic valves | CPT/HCPCS: 93306 ==

== ENCOUNTER → 2021-07-30 | Outpatient (CLI) | payer MEDICARE, OTHER ==
[~2021-07-30] MED LIST changes: +CATHETER FLUSH 10 ML SYR IV PRN
[2021-07-30 08:55] VITALS: BP 129/69
--- NOTE | 2021-07-30 12:43 | Cardiology Stress Test Report ---
Stress Test Report Date of Procedure/Referring: Date of Procedure: Jul 30, 2021 PCP Alba Gaytan MD Admitting Physician Jonh Glynn MD Indications: CAD Baseline Heart Rate: 55 Baseline Blood Pressure: Blood Pressure Systolic: 129 Blood Pressure Diastolic: 69 Vital Signs Date Time Temp Pulse Resp B/P (MAP) Pulse Ox O2 Delivery O2 Flow Rate FiO2 07/30/21 08:55 64 18 129/69 (89) 98 Room Air Baseline Vital Signs Vital Signs Date Time Temp Pulse Resp B/P (MAP) Pulse Ox O2 Delivery O2 Flow Rate FiO2 07/30/21 08:55 64 18 129/69 (89) 98 Room Air Baseline EKG: Baseline EKG: RBBB Summary: After explaining the procedure and details to the patient, he signed the consent and was brought to the stress nuclear laboratory. Patient exercised on standard Oleg protocol, EKG, heart rate and blood pressure were monitored continuously, resting and stress doses of radio tracer were injected, imaging was acquired and reviewed in the short axis, horizontal long axis and vertical long axis views Patient was able to exercise for a total of 7 minutes on Oleg protocol, METs 8.5 Maximum heart rate 129 Maximum blood pressure 215/69 Stress EKG, Minimal nondiagnostic changes Recovery EKG, Return to baseline TID: 1.1 SSS: 0 SDS: 0 EF: 60 Conclusion: 1. Good exercise tolerance for a total of 7 minutes/8.5 METS on standard Oleg protocol achieving 90% of maximal expected heart rate 2. Appropriate heart rate response to exercise with hypertensive response to exercise with peak blood pressure 218/69 return to baseline during recovery 3. Baseline right bundle branch block with nondiagnostic EKG changes with exercise return to baseline during recovery 4. No ischemia or infarction on SPECT images 5. Normal left ventricular size, EF 60% ALBA GAYTAN MD Jul 30, 2021 12:43
== END ==
LOC: CARD 07:30
PROVIDERS: ATTEND Internal Medicine Cardiovascular Disease
DX: I25.10 Atherosclerotic heart disease of native coronary artery without angina pectoris (principal); I10 Essential (primary) hypertension
CPT/HCPCS: 78452; 93017; A9502

== ENCOUNTER → 2022-12-25 | Outpatient (CLI) | payer MEDICARE, OTHER ==
[~2022-12-25] MED LIST changes: -CATHETER FLUSH 10 ML SYR IV PRN
== END ==
LOC: CARD 09:05
PROVIDERS: ATTEND Physician Assistant
DX: I11.9 Hypertensive heart disease without heart failure (principal); I08.0 Rheumatic disorders of both mitral and aortic valves
CPT/HCPCS: 93306

== ENCOUNTER → 2023-04-24 | Outpatient (CLI) | payer MEDICARE, OTHER ==
--- NOTE | 2023-04-24 11:46 | Diagnostic Imaging Report ---
PROCEDURE: CT cervical spine without contrast. TECHNIQUE: Multiple contiguous axial images were obtained through the cervical spine without the use of intravenous contrast. Sagittal and coronal reformations were then performed. Auto Exposure Controls were utilized during the CT exam to meet ALARA standards for radiation dose reduction. INDICATION: Left-sided neck pain and radiculopathy. No prior studies are available for comparison. There is slight reversal of the normal cervical lordotic curvature. There is severe multilevel degenerative disc disease with variable disc space narrowing and marginal spurring, greatest C4-C5, C5-C6 and C6-C7 levels. Uncovertebral joint degenerative changes produce moderate neural foraminal narrowing bilaterally at C3-C4 and C4-C5 levels. Significant right-sided neural foraminal narrowing at C5-C6 with severe left and moderate right neural foraminal narrowing at C6-C7. No fractures are seen. There is generalized facet arthropathy. Prevertebral tissues are normal. Odontoid is intact. IMPRESSION: Cervical spondylosis with multilevel neural foraminal stenosis. No acute bony abnormality is detected. Dictated by: Dictated on workstation # [id number]
== END ==
LOC: RAD 09:18
PROVIDERS: ATTEND Family Medicine
DX: M47.22 Other spondylosis with radiculopathy, cervical region (principal); M48.02 Spinal stenosis, cervical region
CPT/HCPCS: 72125